=== PATIENT | female | born 1945 | race Caucasian/White ===

== ENCOUNTER → 2016-07-12 | Outpatient (CLI) | payer MEDICARE ==
--- NOTE | 2016-07-13 10:52 | RAD ---
APPROVED REPORT Bilateral Lower Extremity Venous Study for DVT Patient Location: OUT-PATIENT Indications STATUS POST ABLATION BILAT. RT YESTERDAY Vein Imaging (Right) CFV (R): Compressible SFJ (R): Non-Compressible FEM (R): Compressible POP (R): Compressible DFV (R): Compressible GSV (R): Non-Compressible Vein Imaging (Left) CFV (L): Compressible SFJ (L): Partially Compressible FEM (L): Compressible POP (L): Compressible DFV (L): Compressible GSV (L): Non-Compressible Findings Bilateral deep deep veins of the lower extremities were imaged. The deep veins from the common femor al vein to the popliteal vein are compressible bilaterally. The right great saphenous vein has signi ficant clot burden from the point distal to the saphenofemoral junction to the knee consistent with r ecent ablation. Similarly on the left side the great saphenous vein has clot burden consistent with recent ablation to the level of the popliteal segments. No obvious thrombus propagation into the jimmy p veins is noted. Critical Notification Critical Value: No <Conclusion> Successful bilateral GSV ablation No evidence of thrombus propagation to the deep venous structures.
== END | disposition home or self-care (01) ==
LOC: US 10:13
PROVIDERS: ATTEND Internal Medicine Cardiovascular Disease
DX: I82.493 Acute embolism and thrombosis of other specified deep vein of lower extremity, bilateral (principal); I82.813 Embolism and thrombosis of superficial veins of lower extremities, bilateral; Z98.890 Other specified postprocedural states
CPT/HCPCS: 93970

== ENCOUNTER → 2016-09-13 | Outpatient (CLI) | payer MEDICARE, OTHER ==
[2016-08-30 09:13] VITALS: BP 138/82
== END | disposition home or self-care (01) ==
LOC: PMGWOUND 08:59
PROVIDERS: ATTEND Preventive Medicine Undersea and Hyperbaric Medicine
DX: T24.311D Burn of third degree of right thigh, subsequent encounter (principal); T31.0 Burns involving less than 10% of body surface; I87.2 Venous insufficiency (chronic) (peripheral); E03.9 Hypothyroidism, unspecified; E78.2 Mixed hyperlipidemia; E11.9 Type 2 diabetes mellitus without complications; I10 Essential (primary) hypertension; X08.8XXD Exposure to other specified smoke, fire and flames, subsequent encounter
CPT/HCPCS: 97597

== ENCOUNTER → 2016-09-27 | Outpatient (CLI) | payer MEDICARE, OTHER ==
[2016-08-30 09:13] VITALS: BP 138/82
== END | disposition home or self-care (01) ==
LOC: PMGWOUND 08:48
PROVIDERS: ATTEND Preventive Medicine Undersea and Hyperbaric Medicine
DX: T24.311D Burn of third degree of right thigh, subsequent encounter (principal); E03.9 Hypothyroidism, unspecified; E78.5 Hyperlipidemia, unspecified; I10 Essential (primary) hypertension; Z86.718 Personal history of other venous thrombosis and embolism; F17.210 Nicotine dependence, cigarettes, uncomplicated; X08.8XXD Exposure to other specified smoke, fire and flames, subsequent encounter
CPT/HCPCS: 99213

== ENCOUNTER → 2016-10-18 | Outpatient (CLI) | payer MEDICARE, OTHER ==
[2016-08-30 09:13] VITALS: BP 138/82
== END | disposition home or self-care (01) ==
LOC: PMGWOUND 09:00
PROVIDERS: ATTEND Preventive Medicine Undersea and Hyperbaric Medicine
DX: T24.311D Burn of third degree of right thigh, subsequent encounter (principal); T31.0 Burns involving less than 10% of body surface; E03.9 Hypothyroidism, unspecified; E78.5 Hyperlipidemia, unspecified; E11.69 Type 2 diabetes mellitus with other specified complication; I10 Essential (primary) hypertension; F17.210 Nicotine dependence, cigarettes, uncomplicated; Z86.718 Personal history of other venous thrombosis and embolism; X08.8XXD Exposure to other specified smoke, fire and flames, subsequent encounter
CPT/HCPCS: 82947; 99213

== ENCOUNTER → 2016-12-29 | Outpatient (CLI) | payer MEDICARE, OTHER ==
[2016-08-30 09:13] VITALS: BP 138/82
--- NOTE | 2016-12-29 16:17 | KCIC ---
EXAM: MRI LUMBAR SPINE WITHOUT CONTRAST. HISTORY: Low back pain. Remote trauma. TECHNIQUE: Magnetic resonance images of the lumbar spine were obtained without contrast. COMPARISON: None. FINDINGS: Bilateral renal cysts measure up to 3.6 cm on the left. There is a moderate lumbar levoscoliosis. There is grade 2 leftward lateral listhesis of L3 on L4. There is slight retrolisthesis at L2-S1. There is moderate focal kyphosis at L2-3. Mild compression of the right aspect of L3 is likely remodeling. There are no acute fractures. Degenerative disc disease is severe from L2 through S1. It is moderate at L1-2. The conus is at T12-L1 and appears normal. At L1-2, there is a moderate posterior disc-osteophyte complex. There is a tiny central protrusion. There is mild right neural foraminal stenosis. At L2-3, there is a moderate posterior disc-osteophyte complex. There is moderate right lateral recess stenosis with mass effect on multiple right-sided nerve root. There is mild right neural foraminal narrowing. A lateral osteophyte complex exerts mass effect on the right L2 nerve root lateral to the foramen. At L3-4, there is a moderate posterior disc ossify complex. Central canal stenosis is mild to moderate with more severe narrowing of the lateral recesses. Foraminal stenosis is moderate bilaterally. At L4-5, there is a small posterior disc-osteophyte complex. 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 Neural foraminal stenosis is moderate to severe on the left and mild on the right. Left lateral recess narrowing is moderate. At L5-S1, there is a moderate posterior disc-osteophyte complex. Neural foraminal stenosis is moderate to severe on the left greater than right. IMPRESSION: 1. Moderate lumbar levoscoliosis with lateral listhesis of L3 on L4. There is moderate focal kyphosis spanning L1-L3. 2. Multifocal moderate posterior disc-osteophyte complex's results in mild to moderate central canal stenosis from L2 through L5 as above. 3. Neural foraminal stenosis is moderate to severe from L4 through S1 and mild to moderate more proximally. 4. The distal pancreatic duct measures 6 mm distally. There is no clear distal obstructing lesion. MRCP/ERCP could further assess for ampullary stenosis or there is persistent concern. Electronically signed by: Alfredo Deng MD (12/29/2016 4:14 PM) [id number]
== END | disposition home or self-care (01) ==
LOC: KCIC MRI 14:54
PROVIDERS: ATTEND Nurse Practitioner Family
DX: M51.36 Other intervertebral disc degeneration, lumbar region (principal); M40.299 Other kyphosis, site unspecified; M48.06 Spinal stenosis, lumbar region; M47.896 Other spondylosis, lumbar region
CPT/HCPCS: 72148